=== PATIENT | female | born 1980 ===

== ENCOUNTER 2018-06-07 19:03 | Emergency (ER) | payer BC ==
[2018-06-07 19:18] VITALS: BMI 31.2
[2018-06-07] MEDS: Lactated Ringer's 1,000 ML IV SCH ×2 (20:05→21:05)
--- NOTE | 2018-06-07 21:10 | OBHP ---
Datetime: 06/07/2018 19:45 IP Adm Impression: , intrauterine ; No Active Labor; Intact Membranes IP Admit Plan: Observation/Evaluation Admit Comment, IP Provider: [id number] IUP at 31w c/o lower abd pain since last night. Occ irregul ar. No SROM. No VB. She was seen at 9am today at [facility] Dr Barraza and UA/Uculture done...given Macr obid. She did not fill prescriptoin and still had CTX. No intercourse >24h. No F/U/D PNC: Dr Deven barraza - last appt today Rh neg- given Rhogam/AMA POBGYNH: G1 TOP PMH: denies PSH: denies NKA PSoH: denies smoking ETHOH drugs A; IUP at 31w threatened PTL UTI PLAN: FFN, CLM and IVF Pelvic Type - PN: Adequate Extremities - PN: Normal Abdomen - PN: Normal Back - PN: Normal Lungs - PN: Normal Heart - PN: Normal Neurologic - PN: Normal HEENT - PN: Normal General - PN: Normal FHR - Baseline A Provider: 120 Membranes, Provider: Intact Pool Provider: Negative IP Hx Assessment: The History has been Reviewed and is Current EGA AdmitDate IP: 31.4 Vital Signs Provider: Reviewed IP Chief Complaint: Uterine contractions NICHD Variability Prov Fetus A: Moderate 6-25bpm NICHD Accel Fetus A IP Provider: 15X15 FHR Category Provider Fetus A: Category I NICHD Decel Fetus A IP Provider: None Dilatation, Provider: 0 Effacement, Provider: 0 Genitourinary Exam: Normal DTRs - PN: Normal
[2018-06-07 21:12] LABS: SPECIMEN COMMENT SL.CLOUDY
[2018-06-08 03:05] VITALS: BP 124/74; PULSE 89; O2SAT 100
--- NOTE | 2018-06-08 08:51 | OBDCSUM ---
Datetime: 06/07/2018 22:17 Discharged to, Provider: Home Follow up at, Provider: with dr barraza as scheduled Disch Instr Activity: Normal activity Disch Instr Diet: Regular Discharge Diagnosis, Provider: False Labor - Undelivered Discharge Time: 06/07/2018 22:23 Disch Referrals: None Disch Activity Restrictions: No sexual activity; Nothing in vagina - [place], tampons, douche Discharge Comment, Provider: Verbal : CLM 3.5cm FFn neg : threatened PTL
--- NOTE | 2018-06-08 10:31 | US ---
Date of service: 06/07/2018 PROCEDURE: OB Pelvic Ultrasound, limited HISTORY: abd pain COMPARISON: None available. FINDINGS: UTERUS: CERVIX: Measures 3.5 cm. Long and closed. No cervical abnormality seen. IMPRESSION: Limited sonographic evaluation performed only for cervical length demonstrates a long closed cervix measuring 3.5 cm.
== END 2018-06-07 22:25 | disposition home or self-care (01) ==
LOC: H.EROB2 19:03
DX: O26.93 Pregnancy related conditions, unspecified, third trimester (principal); R10.2 Pelvic and perineal pain; Z3A.31 31 weeks gestation of pregnancy; O47.9 False labor, unspecified
CPT/HCPCS: 76817; 82731; 96360; 96361; 99284; J7120

== ENCOUNTER 2018-07-24 18:08 | Inpatient (IN) | payer BC ==
[2018-07-24 18:43] VITALS: BMI 32.5
[2018-07-24] MEDS ORDERED: Lactated Ringer's 1,000 ML IV ONE (18:45)
[2018-07-24] MEDS ORDERED: Oxytocin 30 units/LR 500ML 30 UNITS/500 ML BAG IV ONE (18:48)
[2018-07-24 19:14] LABS: BASO # 0.1 K/uL (0.0-0.2); BASO % 0.8 % (0.0-2.0); EOS # 0.1 K/uL (0.0-0.7); EOS % 1.2 % (0.0-4.0); HEMOGLOBIN 10.6 g/dL (12.0-16.0); LYMPH # 1.9 K/uL (1.0-4.3); LYMPH % 18.3 % (20.0-40.0); MEAN CELL VOLUME 71.7 fl (81.0-99.0); MEAN CORPUSCULAR HEMOGLOBIN 22.9 pg (27.0-31.0); MEAN PLATELET VOLUME 7.9 fl (7.2-11.7); MONO # 0.8 K/uL (0.0-0.8); MONO % 7.8 % (0.0-10.0); NEUT # 7.5 K/uL (1.8-7.0); NEUT % 71.9 % (50.0-75.0); NRBC % 0.1 % (0.0-0.0); RBC 4.65 Mil/uL (3.80-5.20); RED CELL DISTRIBUTION WIDTH 16.5 % (11.5-14.5); WHITE BLOOD COUNT 10.4 K/uL (4.8-10.8)
[2018-07-24 19:22] VITALS: O2SAT 97
[2018-07-24] MEDS ORDERED: Nalbuphine HCL 10 mg/ml Ampule IVP PRN (22:07)
[2018-07-24] MEDS ORDERED: Promethazine 25 MG in Sodium Chloride 0.9% 50 ML IVPB ONE (22:08)
[2018-07-24] MEDS ORDERED: Nalbuphine HCL 10 mg/ml Ampule ONE (22:19)
[2018-07-24] MEDS: Lactated Ringer's 1,000 ML IV SCH (23:15)
--- NOTE | 2018-07-25 00:33 | OBADHP ---
Datetime: 07/24/2018 19:03 Admit Comment, IP Provider: Pt is a 37 yo 38.2 wk presented to [facility] due to suspected rapture of membrane at 14:00 07/24/18. Pt state that she felt a mucus coming out and 1 hr later there was a sari h of water running between her legs. Otherwise patient denies any vag bleed, or contraction, pt repor t movement but have decreased since membrane raptured. Pt state she was dx with UTI 2 wk ago, and was given Ampicillin, she took only 1 pill a day due to missunderstanding , last pill was yesterday. Pt denies fever, chills, dysuira or polyuria. Pt have n o other complains. ALlergy: none PCP: Dr. Guerrero Med: PNV PMH: none OBGYN: UTI, 1 of 3-4 week old PFH: none Social denies Smoke/ETOH/ Or drug use Assessment and Plan Pt is a 37 yo 38.2 wk presented to [facility] due to suspected rapture of membrane at 14:00 8. Admit patient to L_D Upon physical exam + for pooling, Nitrostat +/ + for ROM All labs reviewd GBS - FMS is reactive US Vertex Will start LR 1 L at 999/ LR 1L 125 Cytotec Q4h prn induction Liq diet anesthesia on case Continue monitor FHS and tocometer Discussed with Dr Mika Jerome PGY 1 Attending Note: patient was seen and examined with the Resident and I agree with the above. Pelvic Type - PN: Adequate Extremities - PN: Normal Abdomen - PN: Normal Back - PN: Normal Breast - PN: Not Done Lungs - PN: Normal Heart - PN: Normal Thyroid - PN: Normal Neurologic - PN: Normal HEENT - PN: Normal General - PN: Normal Presentation-Admit: Vertex FHR - Baseline A Provider: 145 Amniotic Fluid Color, Provider: Clear Membranes, Provider: Ruptured Contraction Comments Provider: irregular Comments, ACOG Physical Exam: PT is not acute distresss heart s1 s2 heard no extra heart sound lung clear, with no effort abd non tender, bs+ pelvic 1 cm 70% Gestation - Est Wks by US: 38.2 Pool Provider: Positive Nitrazine Provider: Negative IP Chief Complaint: Suspected ruptured membranes NICHD Variability Prov Fetus A: Marked >25bpm NICHD Accel Fetus A IP Provider: 15X15 FHR Category Provider Fetus A: Category I NICHD Decel Fetus A IP Provider: None Dilatation, Provider: 1 Effacement, Provider: 70 Genitourinary Exam: Normal DTRs - PN: Normal EGA AdmitDate IP: 38.2 IP Adm Impression: Term, intrauterine ; Ruptured Membranes IP Admit Plan: Admit to unit; Initiate labor protocol Datetime: 07/24/2018 18:22 Vital Signs Provider: Reviewed; Within Normal Limits Datetime: 06/07/2018 19:45 IP Hx Assessment: The History has been Reviewed and is Current
--- NOTE | 2018-07-25 00:52 | OBPN ---
Datetime: 07/25/2018 00:32 IP Progress Impression: Reassuring heart rate; Premature rupture of membranes IP Progress Plan: Continue present management; Cervical Ripening FHR - Baseline A Provider: 140 Gestation - Est Wks by US: 38.3 Presentation-Admit: Vertex IP Progress Note Comment: patient reports of pelvic pressure and pain. Request pain management. Plan: Nubain and phenergan Vital Signs Provider: Reviewed NICHD Accel Fetus A IP Provider: 15X15 FHR Category Provider Fetus A: Category I NICHD Variability Prov Fetus A: Moderate 6-25bpm Dilatation, Provider: 2 Effacement, Provider: 70 Station, Provider: -3 Datetime: 07/24/2018 19:03 Pool Provider: Positive Nitrazine Provider: Negative Membranes, Provider: Ruptured Amniotic Fluid Color, Provider: Clear Contraction Comments Provider: irregular NICHD Decel Fetus A IP Provider: None
[2018-07-25] MEDS: Lactated Ringer's 1,000 ML IV SCH ×3 (03:35→15:16)
[2018-07-25] MEDS ORDERED: Fentanyl/Bupivacaine HCl 250 ML EPI ONE (03:39)
[2018-07-25] MEDS ORDERED: Oxytocin 30 UNIT 30 UNITS/500 ML BAG IV ONE (03:53)
--- NOTE | 2018-07-25 03:59 | OBPN ---
Datetime: 07/25/2018 03:55 IP Progress Impression Other: Pain requesting epidural IP Progress Impression: Normal progression of labor; Reassuring heart rate IP Procedures: Sterile Vag Exam IP Progress Plan: Continue present management; Augmentation; Anesthesia consult; Anticipate Vaginal Delivery Membranes, Provider: Ruptured Amniotic Fluid Color, Provider: Clear Contraction Comments Provider: Q 3-5 FHR - Baseline A Provider: 150 Gestation - Est Wks by US: 38.3 Presentation-Admit: Vertex IP Progress Note Comment: IUP at 38.3weeks PROM S/P Cytotec #1 Plan: Anesthesia consult Pitocin for augmentation of labor Monitor the progress of labor. Vital Signs Provider: Reviewed NICHD Accel Fetus A IP Provider: 15X15 FHR Category Provider Fetus A: Category I NICHD Variability Prov Fetus A: Moderate 6-25bpm Dilatation, Provider: 3 Effacement, Provider: 100 Station, Provider: -2
--- NOTE | 2018-07-25 07:42 | OBPN ---
Datetime: 07/25/2018 07:38 IP Progress Impression: Normal progression of labor; Reassuring heart rate IP Procedures: Sterile Vag Exam IP Progress Plan: Continue present management; Anticipate Vaginal Delivery Membranes, Provider: Ruptured FHR - Baseline A Provider: 150 Gestation - Est Wks by US: 38.3 Presentation-Admit: Vertex IP Progress Note Comment: IUP at 38w3d in labor Reassuring Maternal status Plan: Continue monitoring the progress of labor. NICHD Accel Fetus A IP Provider: 15X15 FHR Category Provider Fetus A: Category I NICHD Variability Prov Fetus A: Moderate 6-25bpm Dilatation, Provider: 5 Effacement, Provider: 100 Station, Provider: -2 NICHD Decel Fetus A IP Provider: None
--- NOTE | 2018-07-25 07:45 | OBHP ---
Datetime: 07/25/2018 07:38 Presentation-Admit: Vertex FHR - Baseline A Provider: 150 Membranes, Provider: Ruptured Gestation - Est Wks by US: 38.3 NICHD Variability Prov Fetus A: Moderate 6-25bpm NICHD Accel Fetus A IP Provider: 15X15 FHR Category Provider Fetus A: Category I NICHD Decel Fetus A IP Provider: None Dilatation, Provider: 5 Effacement, Provider: 100 Station, Provider: -2 Datetime: 07/25/2018 03:55 Amniotic Fluid Color, Provider: Clear Contraction Comments Provider: Q 3-5 Vital Signs Provider: Reviewed Datetime: 07/24/2018 19:03 EGA AdmitDate IP: 38.2 Datetime: 07/24/2018 18:22 Admit Comment, IP Provider: Pt is a 37 yo 38.2 wk presented to [facility] due to suspected rapture of membrane at 14:00 07/24/18. Pt state that she felt a mucus coming out and 1 hr later there was a sari h of water running between her legs. Otherwise patient denies any vag bleed, or contraction, pt repor t movement but have decreased since membrane raptured. Pt state she was dx with UTI 2 wk ago, and was given Ampicillin, she took only 1 pill a day due to missunderstanding , last pill was yesterday. Pt denies fever, chills, dysuira or polyuria. Pt have n o other complains. ALlergy: none PCP: Dr. Guerrero Med: PNV PMH: none OBGYN: UTI, 1 of 3-4 week old PFH: none Social denies Smoke/ETOH/ Or drug use 18:28 Assessment and Plan Pt is a 37 yo 38.2 wk presented to [facility] due to suspected rapture of membrane at 14:00 8. Upon physical exam + for pooling, Nitrostat +/ + for ROM All labs reviewd GBS - FMS is reactive US Vertex Will admit to L_D for start protocol of vag delivery Discussed with Dr Mika Jerome PGY 1 Attending Note: Patient was seen and examined with Resident and I Agree with the above.
[2018-07-25] MEDS ORDERED: Lidocaine 1% Inj (20ml) ONE (11:43)
[2018-07-25] MEDS ORDERED: Benzocaine/Menthol SPRAY TOP PRN ×2 (16:30→20:15)
[2018-07-25] MEDS ORDERED: Oxycodone/Acetaminophen 5/325 mg Tab PO PRN ×2 (16:30→20:15)
[2018-07-25] MEDS ORDERED: ceFAZolin 1 GM in Sodium Chloride 0.9% 100 ML IVPB ONE (17:07)
--- NOTE | 2018-07-25 17:12 | OBDS ---
DELIVERY PERSONNEL Delivery Doctor: Luciana Chiang MD MATERNAL INFORMATION Provider Comments: of live female infant over intact perineum, 04/17, OA presentation, followed b y shoulders and rest of , mouth and nose suctioned on mother's chest, cord clamped and cut, rohan centa delivered spontaneously, fundus firm, lower segment atony, Methergine given, second degree lace ration repaired with 2-0 vicryl rapide, EBL = 400mL, pt hemostatic at the end of the dlivery LABOR SUMMARY EDC: 08/05/2018 00:00 LABOR INFORMATION Onset of Labor: 07/24/2018 14:30 Cervical Ripening Agents: Cytotec @ 50 Group B Beta Strep: Negative MEMBRANES Membranes Rupture Method: Spontaneous Rupture of Membranes: 07/24/2018 14:30 Amniotic Fluid Color: Clear Amniotic Fluid Amount: Moderate Amniotic Fluid Odor: Normal
[2018-07-25] MEDS ORDERED: ceFAZolin IV 2 gm in Dextrose 2 GM/50 ML BAG IVPB ONE (17:17)
[2018-07-25] MEDS ORDERED: ceFAZolin IV 2 gm in Dextrose 2 GM/50 ML BAG IVPB SCH (17:30)
[2018-07-26 06:05] LABS: BASO # 0.1 K/uL (0.0-0.2); BASO % 0.6 % (0.0-2.0); EOS # 0.1 K/uL (0.0-0.7); EOS % 0.5 % (0.0-4.0); HEMOGLOBIN 9.1 g/dL (12.0-16.0); LYMPH # 2.3 K/uL (1.0-4.3); LYMPH % 10.6 % (20.0-40.0); MEAN CELL VOLUME 72.9 fl (81.0-99.0); MEAN CORPUSCULAR HGB CONC 31.5 g/dL (33.0-37.0); MEAN PLATELET VOLUME 7.9 fl (7.2-11.7); MONO # 1.2 K/uL (0.0-0.8); MONO % 5.6 % (0.0-10.0); NEUT # 17.9 K/uL (1.8-7.0); NEUT % 82.7 % (50.0-75.0); NRBC % 0.1 % (0.0-0.0); RBC 3.98 Mil/uL (3.80-5.20); RED CELL DISTRIBUTION WIDTH 16.4 % (11.5-14.5); WHITE BLOOD COUNT 21.7 K/uL (4.8-10.8)
--- NOTE | 2018-07-26 09:03 | OBPPN ---
Datetime: 07/26/2018 09:01 PP Pain Prov: Within normal limits PP Nausea Prov: Denies PP Flatus Prov: Yes PP BM Prov: Yes PP Breasts Prov: Normal PP Heart Prov: Normal PP Lungs Prov: Normal PP Abdomen/Uterus Prov: Normal PP Lochia Prov: Normal PP Vulva/Perineum Prov: Normal PP CVA Tenderness Prov: Normal PP Extremities Prov: Normal PP Progress Prov: Normal PP Impression Prov: Normal progression PP Plan Prov: Continue present management PP Progress Note Prov: H/H 05/07 A; S/P day1 Anemia - asymptomatic Rh neg PLAN: cont post op care Rhogam if indicated Vital Signs Provider PP: Reviewed; Within Normal Limits
--- NOTE | 2018-07-27 12:00 | OBPPN ---
Datetime: 07/27/2018 11:59 PP Pain Prov: Within normal limits PP Nausea Prov: Denies PP Flatus Prov: Yes PP Breasts Prov: Not Done PP Heart Prov: Normal PP Lungs Prov: Normal PP Abdomen/Uterus Prov: Normal PP Lochia Prov: Not Done PP Vulva/Perineum Prov: Not Done PP CVA Tenderness Prov: Normal PP Extremities Prov: Normal PP Impression Prov: Normal progression PP Plan Prov: Discharge PP Progress Note Prov: Patient cleared for discharge Vital Signs Provider PP: Reviewed
[2018-07-27 19:03] VITALS: BP 117/65; PULSE 77; RESP 20; TEMP 97.9
== END 2018-07-27 11:45 | disposition home or self-care (01) | DRG 807 ==
LOC: H.EROB2 18:08 → H.ERHOLD 18:45 → H.L&D 19:48 → H.OB/GYN 07-25 19:40
PROVIDERS: ADMIT Obstetrics & Gynecology Gynecology; ATTEND Obstetrics & Gynecology Gynecology
PROC: 10E0XZZ Delivery of Products of Conception, External Approach (ICD-10-PCS; principal; 2018-07-24)
PROC: 0KQM0ZZ Repair Perineum Muscle, Open Approach (ICD-10-PCS; 2018-07-24)
PROC: 4A1HXCZ Monitoring of Products of Conception, Cardiac Rate, External Approach (ICD-10-PCS; 2018-07-24)
PROC: 3E0334Z Introduction of Serum, Toxoid and Vaccine into Peripheral Vein, Percutaneous Approach (ICD-10-PCS; 2018-07-26)
DX: O36.0930 Maternal care for other rhesus isoimmunization, third trimester, not applicable or unspecified (principal); O70.1 Second degree perineal laceration during delivery; O90.81 Anemia of the puerperium; Z37.0 Single live birth; Z3A.38 38 weeks gestation of pregnancy; O09.523 Supervision of elderly multigravida, third trimester; Z87.440 Personal history of urinary (tract) infections